=== PATIENT | female | born 1970 | race African-American/Black ===

== ENCOUNTER 2021-02-18 13:47 | Emergency (ER) | payer SELFPAY | END 2021-02-18 16:57 | disposition left against medical advice (07) | LOC: ERS 13:47 | DX: Z53.21 Procedure and treatment not carried out due to patient leaving prior to being seen by health care provider (principal) ==

== ENCOUNTER 2021-10-18 01:02 | Emergency (ER) | payer BC ==
[2021-10-18] MEDS ORDERED: Acetaminophen 500 MG TAB ONE (01:35)
[2021-10-18 01:37] LABS: #Basophils 0.1 thou/uL (0.0-0.2); #Lymphocytes 2.7 thou/uL (1.20-3.40); #Monocytes 1.3 thou/uL (0.11-0.59); #Neutrophils 11.5 thou/uL (1.40-6.50); %Basophils 0.4 % (0.0-1.0); %Eosinophils 0.2 % (0.0-10.0); %Lymphocytes 17.5 % (21.0-51.0); %Monocytes 8.2 % (0.0-10.0); %Neutrophils 73.7 % (42.0-75.0); Hemoglobin 15.5 g/dL (12.0-16.0); Mean Corpuscular HGB CONC 33.7 g/dL (32.0-36.0); Mean Corpuscular Hemoglobin 29.5 pg (27.0-31.0); Mean Corpuscular Volume 87.5 fL (78.0-98.0); Mean Platelet Volume 9.4 fL (7.4-10.4); Platelet Count 173 thou/uL (130-400); RBC Distribution Width 12.3 % (11.5-14.5); Red Blood Cell (RBC) Count 5.26 mill/uL (4.20-5.40); White Blood Cell (WBC) Count 15.6 thou/uL (4.8-10.8)
[2021-10-18] MEDS ORDERED: Ondansetron PF 4 MG/2 ML Vial ONE (01:55)
[2021-10-18 01:59] LABS: ALT (SGPT) 60 U/L (8-55); AST (SGOT) 82 U/L (5-34); Albumin 4.5 g/dL (3.5-5.0); Alkaline Phosphatase 122 U/L (40-110); Anion Gap 20 mmol/L (10-20); BUN (Urea Nitrogen) 10 mg/dL (9.8-20.1); Bilirubin, Total 1.3 mg/dL (0.2-1.2); CK (CPK) 316 U/L (29-168); Calc. Creatinine Clearance 0 mL/min (70-130); Carbon Dioxide 18 mmol/L (22-29); Chloride 100 mmol/L (98-107); Globulin 4.2 g/dL (2.4-3.5); Glucose 117 mg/dL (70-105); Platelet Morphology Comment Appears Adequate; Potassium 4.1 mmol/L (3.5-5.1); Protein, Total 8.7 g/dL (6.0-8.3); RBC Morphology Normal; Sodium 134 mmol/L (136-145)
[2021-10-18 02:23] LABS: Bilirubin Negative (Negative); Blood, Urine 1+ (Negative); Clarity Turbid (Clear); Glucose, Urine (Dipstick) Normal (Negative); Ketone, Urine 40 mg/dL (Negative); Leukocyte 250 Leu/uL (Negative); Mucous/LPF Rare LPF (<2+); Nitrite Negative (Negative); Protein, Urine (Dipstick) 100 mg/dL (Neg-Trace); RBC/HPF 0-3 HPF (0-3); Specific Gravity, Urine 1.033 (1.002-1.036); Squamous Epithelial 0-3 HPF (0-3); Urobilinogen 3 mg/dL (Less than 2); pH, Urine 5.5 (5.0-9.0)
[2021-10-18 02:49] LABS: Bacteria/HPF 1+ HPF (None Seen)
[2021-10-18] MEDS ORDERED: cefTRIAXone\\ROCEPHIN 1 GM VIAL ONE (03:42)
== END 2021-10-18 04:30 | disposition home or self-care (01) ==
LOC: ERS 01:02
DX: N39.0 Urinary tract infection, site not specified (principal); F17.210 Nicotine dependence, cigarettes, uncomplicated
CPT/HCPCS: 36415; 71045; 76705; 80053; 81003; 81015; 82550; 83605; 83690; 84484; 85025; 87040; 87086; 93005; J0696; J2405

== ENCOUNTER 2021-10-19 19:30 | Inpatient (IN) | payer BC ==
[~2021-10-19 19:30] MED LIST: Iopamidol-370 76% 500 ML 1 ML ONE
[2021-10-19 21:00] LABS: #Basophils 0.1 thou/uL (0.0-0.2); #Eosinphils 0.1 thou/uL (0.0-0.7); #Lymphocytes 1.5 thou/uL (1.20-3.40); #Monocytes 0.7 thou/uL (0.11-0.59); #Neutrophils 6.3 thou/uL (1.40-6.50); %Basophils 1.1 % (0.0-1.0); %Eosinophils 1.3 % (0.0-10.0); %Monocytes 8.4 % (0.0-10.0); %Neutrophils 72.2 % (42.0-75.0); Hemoglobin 13.5 g/dL (12.0-16.0); Mean Corpuscular HGB CONC 32.4 g/dL (32.0-36.0); Mean Corpuscular Hemoglobin 28.9 pg (27.0-31.0); Mean Corpuscular Volume 89.1 fL (78.0-98.0); Mean Platelet Volume 9.5 fL (7.4-10.4); Platelet Count 162 thou/uL (130-400); RBC Distribution Width 12.5 % (11.5-14.5); Red Blood Cell (RBC) Count 4.68 mill/uL (4.20-5.40); White Blood Cell (WBC) Count 8.7 thou/uL (4.8-10.8)
[2021-10-19 21:22] LABS: ALT (SGPT) 120 U/L (8-55); AST (SGOT) 129 U/L (5-34); Albumin 3.9 g/dL (3.5-5.0); Alkaline Phosphatase 138 U/L (40-110); Anion Gap 16 mmol/L (10-20); BUN (Urea Nitrogen) 8 mg/dL (9.8-20.1); Bilirubin, Total 1.2 mg/dL (0.2-1.2); Calc. Creatinine Clearance 0 mL/min (70-130); Calcium 9.2 mg/dL (7.8-10.44); Carbon Dioxide 21 mmol/L (22-29); Chloride 101 mmol/L (98-107); Globulin 3.5 g/dL (2.4-3.5); Glucose 92 mg/dL (70-105); Potassium 3.3 mmol/L (3.5-5.1); Protein, Total 7.4 g/dL (6.0-8.3); Sodium 135 mmol/L (136-145)
[2021-10-19] MEDS ORDERED: Ketorolac Tromethamine 30 MG/ML VIAL ONE (22:43)
[2021-10-19 23:19] LABS: Bacteria/HPF None Seen HPF (None Seen); Bilirubin Negative (Negative); Blood, Urine Trace (Negative); Clarity Turbid (Clear); Glucose, Urine (Dipstick) Normal (Negative); Ketone, Urine 20 mg/dL (Negative); Leukocyte 250 Leu/uL (Negative); Mucous/LPF Rare LPF (<2+); Nitrite Negative (Negative); Protein, Urine (Dipstick) 100 mg/dL (Neg-Trace); Specific Gravity, Urine 1.025 (1.002-1.036); Urobilinogen 6 mg/dL (Less than 2)
[2021-10-19 23:35] LABS: RBC/HPF 0-3 HPF (0-3); Squamous Epithelial 0-3 HPF (0-3)
[2021-10-20] MEDS ORDERED: Ketorolac Tromethamine 30 MG/ML VIAL ONE (00:02)
[2021-10-20] MEDS ORDERED: cefTRIAXone\\ROCEPHIN 2 GM VIAL ONE (00:02)
[2021-10-20] MEDS ORDERED: Azithromycin 500 MG VIAL ONE (00:03)
[2021-10-20] MEDS ORDERED: HYDROcodone/Acetaminophen 7.5/325 mg Tablet PO PRN (02:13)
[2021-10-20] MEDS ORDERED: Guaifenesin DM 100-10/5 ML UDCUP PO PRN (02:13)
[2021-10-20] MEDS ORDERED: Ondansetron PF 4 MG/2 ML Vial IVP PRN ×2 (02:13→02:15)
[2021-10-20] MEDS ORDERED: Ondansetron ODT 4 MG TAB SL PRN (02:15)
[2021-10-20] MEDS ORDERED: Lactated Ringer's 1,000 ML IV SCH (02:15)
[2021-10-20] MEDS ORDERED: Acetaminophen 325 MG TAB PO PRN (02:15)
[2021-10-20] MEDS ORDERED: Melatonin 3 MG TAB PO PRN (02:22)
[2021-10-20] MEDS: Acetaminophen 325 MG TAB PO PRN ×3 (02:39→18:03)
[2021-10-20] MEDS: Nicotine 21 MG PATCH TD SCH (02:49)
[2021-10-20] MEDS ORDERED: methylPREDNISolone Sod Succ/PF 125 MG/2 ML VIAL IVP SCH (03:00)
[2021-10-20] MEDS: Sodium Chloride 0.9% 1,000 ML IV SCH ×2 (03:01→14:37)
[2021-10-20] MEDS ORDERED: Potassium Chloride 20 MEQ TAB PO SCH (03:08)
[2021-10-20 03:13] VITALS: BMI 34.8
[2021-10-20 03:45] LABS: SARS-CoV-2 NAA Rapid Test Not Detected (NotDetected)
[2021-10-20 04:43] LABS: #Eosinphils 0.1 thou/uL (0.0-0.7); #Lymphocytes 1.5 thou/uL (1.20-3.40); #Monocytes 0.5 thou/uL (0.11-0.59); #Neutrophils 7.8 thou/uL (1.40-6.50); %Basophils 0.4 % (0.0-1.0); %Eosinophils 0.9 % (0.0-10.0); %Lymphocytes 14.7 % (21.0-51.0); %Monocytes 4.9 % (0.0-10.0); %Neutrophils 79.1 % (42.0-75.0); Hemoglobin 12.8 g/dL (12.0-16.0); Mean Corpuscular HGB CONC 33.3 g/dL (32.0-36.0); Mean Corpuscular Hemoglobin 29.8 pg (27.0-31.0); Mean Corpuscular Volume 89.3 fL (78.0-98.0); Mean Platelet Volume 9.6 fL (7.4-10.4); Platelet Count 157 thou/uL (130-400); RBC Distribution Width 12.5 % (11.5-14.5); Red Blood Cell (RBC) Count 4.29 mill/uL (4.20-5.40); White Blood Cell (WBC) Count 9.9 thou/uL (4.8-10.8)
[2021-10-20 05:15] LABS: ALT (SGPT) 115 U/L (8-55); AST (SGOT) 131 U/L (5-34); Albumin 3.6 g/dL (3.5-5.0); Alkaline Phosphatase 135 U/L (40-110); Anion Gap 14 mmol/L (10-20); BUN (Urea Nitrogen) 8 mg/dL (9.8-20.1); Bilirubin, Total 0.8 mg/dL (0.2-1.2); Calc. Creatinine Clearance 113 mL/min (70-130); Calcium 9.1 mg/dL (7.8-10.44); Carbon Dioxide 23 mmol/L (22-29); Chloride 103 mmol/L (98-107); Globulin 3.1 g/dL (2.4-3.5); Glucose 117 mg/dL (70-105); Potassium 3.2 mmol/L (3.5-5.1); Protein, Total 6.7 g/dL (6.0-8.3); Sodium 137 mmol/L (136-145)
[2021-10-20] MEDS: Pantoprazole 40 MG VIAL IVP SCH (08:38)
[2021-10-20] MEDS: methylPREDNISolone Sod Succ 40 MG VIAL IVP SCH ×2 (08:38→21:02)
[2021-10-20] MEDS: Senokot S 8.6-50 MG TAB PO SCH ×2 (08:39→21:02)
[2021-10-20] MEDS ORDERED: Artificial Tear Sol 15 ML BOT EA EYE PRN (09:27)
[2021-10-20] MEDS ORDERED: hydrALAZINE 20 MG/ML VIAL SLOW IVP PRN (09:27)
[2021-10-20] MEDS ORDERED: Calcium Carbonate 500 MG ChewTAB PO PRN (09:27)
[2021-10-20] MEDS ORDERED: Sodium Chloride 0.65% Nasal 44 ML BOT EA NARE PRN (09:27)
[2021-10-20] MEDS ORDERED: Moisturizing Cream (Eucerin) 113 GM JAR TOP PRN (09:27)
[2021-10-20] MEDS ORDERED: Zolpidem Tartrate 5 MG TAB PO PRN (09:27)
[2021-10-20] MEDS ORDERED: Loratadine 10 MG TAB PO PRN (09:27)
[2021-10-20] MEDS ORDERED: Loperamide HCl 2 MG CAP PO PRN (09:27)
[2021-10-20] MEDS ORDERED: Cepastat Lozenges 1 LOZ PO PRN (09:27)
[2021-10-20] MEDS ORDERED: Bupropion 150 MG SR TAB PO SCH (21:00)
[2021-10-20] MEDS: Bupropion 150 MG SR TAB PO SCH (21:01)
[2021-10-20] MEDS: HYDROcodone/Acetaminophen 5/325 mg Tablet PO PRN (21:01)
[2021-10-20] MEDS: Azithromycin 500 MG in Sodium Chloride 0.9% 250 ML 250 ML IVPB SCH (21:02)
[2021-10-21] MEDS: cefTRIAXone\\ROCEPHIN 2 GM in Sodium Chloride 0.9% 100 ML IVPB SCH ×2 (00:50→23:21)
[2021-10-21] MEDS: Nicotine 21 MG PATCH TD SCH (04:00)
[2021-10-21] MEDS: Sodium Chloride 0.9% 1,000 ML IV SCH (05:23)
[2021-10-21] MEDS: HYDROcodone/Acetaminophen 5/325 mg Tablet PO PRN ×2 (05:27→20:19)
[2021-10-21] MEDS ORDERED: Montelukast Sodium 10 mg Tablet PO SCH (09:00)
[2021-10-21] MEDS: Pantoprazole 40 MG VIAL IVP SCH (09:02)
[2021-10-21] MEDS: Montelukast Sodium 10 mg Tablet PO SCH (09:02)
[2021-10-21] MEDS: methylPREDNISolone Sod Succ 40 MG VIAL IVP SCH ×2 (09:02→20:21)
[2021-10-21] MEDS: Bupropion 150 MG SR TAB PO SCH ×2 (09:02→20:18)
[2021-10-21] MEDS: Senokot S 8.6-50 MG TAB PO SCH ×2 (09:02→20:18)
[2021-10-21] MEDS: GUAIFENESIN SF SOLN 200 MG/10 ML UDCUP PO PRN (20:20)
[2021-10-21] MEDS: Azithromycin 500 MG in Sodium Chloride 0.9% 250 ML 250 ML IVPB SCH (21:16)
[2021-10-22] MEDS: Nicotine 21 MG PATCH TD SCH (02:40)
[2021-10-22 06:07] LABS: #Lymphocytes 1.6 thou/uL (1.20-3.40); #Monocytes 0.5 thou/uL (0.11-0.59); %Basophils 0.1 % (0.0-1.0); %Eosinophils 0.2 % (0.0-10.0); %Lymphocytes 15.9 % (21.0-51.0); %Monocytes 5.2 % (0.0-10.0); %Neutrophils 78.6 % (42.0-75.0); Hemoglobin 11.6 g/dL (12.0-16.0); Mean Corpuscular HGB CONC 32.4 g/dL (32.0-36.0); Mean Corpuscular Hemoglobin 29.4 pg (27.0-31.0); Mean Corpuscular Volume 90.8 fL (78.0-98.0); Mean Platelet Volume 9.3 fL (7.4-10.4); Platelet Count 217 thou/uL (130-400); RBC Distribution Width 12.9 % (11.5-14.5); Red Blood Cell (RBC) Count 3.96 mill/uL (4.20-5.40); White Blood Cell (WBC) Count 10.2 thou/uL (4.8-10.8)
[2021-10-22 06:29] LABS: Anion Gap 14 mmol/L (10-20); BUN (Urea Nitrogen) 10 mg/dL (9.8-20.1); Calc. Creatinine Clearance 129 mL/min (70-130); Calcium 9.1 mg/dL (7.8-10.44); Carbon Dioxide 25 mmol/L (22-29); Chloride 107 mmol/L (98-107); Glucose 112 mg/dL (70-105); Magnesium 2.3 mg/dL (1.6-2.6); Phosphorus 3.7 mg/dL (2.3-4.7); Potassium 4.1 mmol/L (3.5-5.1); Sodium 142 mmol/L (136-145)
[2021-10-22 07:34] LABS: HBSAg Index 0.29 S/CO (0-0.99); Hep A IgM AB Non-Reactive (NonReactive); Hep A IgM S/CO 0.22 S/CO (0-0.79); Hep B Surf Ag Non-Reactive S/CO (NonReactive); Hep C IgG Ab Non-Reactive (NonReactive); Hep C Index 0.09 S/CO (0-0.79)
[2021-10-22 08:17] VITALS: BP 104/69; TEMP 98.7
[2021-10-22] MEDS: Senokot S 8.6-50 MG TAB PO SCH (08:54)
[2021-10-22] MEDS: Montelukast Sodium 10 mg Tablet PO SCH (08:54)
[2021-10-22] MEDS: methylPREDNISolone Sod Succ 40 MG VIAL IVP SCH (08:54)
[2021-10-22] MEDS: Bupropion 150 MG SR TAB PO SCH (08:56)
[2021-10-22] MEDS: GUAIFENESIN SF SOLN 200 MG/10 ML UDCUP PO PRN (08:57)
[2021-10-22] MEDS ORDERED: Enoxaparin Sodium 40 MG/0.4 ML SYRINGE SC SCH (09:00)
[2021-10-22 09:45] LABS: HBCM Index 0.97 S/CO (0-0.79); Hepatitis B Core IgM Abs Equivocal (NonReactive)
== END 2021-10-22 12:13 | disposition home or self-care (01) | DRG 194 ==
LOC: ERS 19:30 → T4-A 10-20 00:42
PROVIDERS: ADMIT Internal Medicine; ATTEND Internal Medicine
DX: J18.9 Pneumonia, unspecified organism (principal); J44.0 Chronic obstructive pulmonary disease with (acute) lower respiratory infection; R04.2 Hemoptysis; N39.0 Urinary tract infection, site not specified; Z20.822 Contact with and (suspected) exposure to COVID-19; E87.6 Hypokalemia; R91.8 Other nonspecific abnormal finding of lung field; R91.1 Solitary pulmonary nodule; F17.210 Nicotine dependence, cigarettes, uncomplicated; R74.01 Elevation of levels of liver transaminase levels; Z90.89 Acquired absence of other organs; Z90.721 Acquired absence of ovaries, unilateral; Z83.3 Family history of diabetes mellitus; Z82.49 Family history of ischemic heart disease and other diseases of the circulatory system; Z71.6 Tobacco abuse counseling
CPT/HCPCS: 36415; 71045; 71275; 76705; 80048; 80053; 80074; 81003; 81015; 82550; 83605; 83690; 83735; 84100; 84484; 85025; 87040; 87086; 93005; 94640; 96361; 96365; C9113; J0456; J0696; J1650; J1885; J2405; J2920; J2930; J3490; J7050; J7620; Q9967; U0002